=== PATIENT | female | born 1990 | race Caucasian/White ===

== ENCOUNTER → 2021-04-14 | Outpatient (CLI) | payer OTHER ==
[2021-04-14 12:11] LABS: ESTRADIOL 27.1 PG/ML; PROGESTERONE 23.85 NG/ML
== END ==
LOC: M LAB 10:39
PROVIDERS: ATTEND Obstetrics & Gynecology Reproductive Endocrinology
DX: Z31.41 Encounter for fertility testing (principal)

== ENCOUNTER → 2021-04-21 | Outpatient (CLI) | payer OTHER ==
[2021-04-21 09:36] LABS: PROGESTERONE 14.25 NG/ML
== END ==
LOC: M LAB 08:31
PROVIDERS: ATTEND Obstetrics & Gynecology Reproductive Endocrinology
DX: Z32.00 Encounter for pregnancy test, result unknown (principal)

== ENCOUNTER → 2021-04-23 | Outpatient (CLI) | payer OTHER ==
[2021-04-23 08:16] LABS: THYROID STIMULATING HORMONE 2.18 uIU/ML (0.358-3.740)
[2021-04-23 08:18] LABS: ESTRADIOL 97.7 PG/ML; PROGESTERONE 16.23 NG/ML
== END ==
LOC: M LAB 07:17
PROVIDERS: ATTEND Obstetrics & Gynecology Reproductive Endocrinology
DX: Z32.01 Encounter for pregnancy test, result positive (principal)

== ENCOUNTER → 2021-04-27 | Outpatient (CLI) | payer OTHER ==
[2021-04-27 10:20] LABS: PROGESTERONE 17.15 NG/ML
[2021-04-27 10:22] LABS: ESTRADIOL 152.8 PG/ML
== END ==
LOC: M LAB 08:56
PROVIDERS: ATTEND Obstetrics & Gynecology Reproductive Endocrinology
DX: O09.00 Supervision of pregnancy with history of infertility, unspecified trimester (principal)

== ENCOUNTER → 2021-06-26 | Outpatient (CLI) | payer OTHER ==
[2021-06-26 18:05] LABS: BASO % 0.3 % (0.0-1.0); EOS # 0.1 10^3/uL (0.0-0.5); EOS % 0.6 % (0.0-3.0); HEMATOCRIT 36.2 % (36.0-47.0); HEMOGLOBIN 11.4 g/dl (12.0-15.5); LYMPH # 2.7 10^3/uL (1.5-5.0); LYMPH % 26.4 % (24.0-44.0); MEAN CORPUSCULAR HEMOGLOBIN 27.3 pg (27.0-33.0); MEAN CORPUSCULAR HGB CONC 31.5 g/dl (32.0-36.5); MEAN CORPUSCULAR VOLUME 86.6 fl (80.0-96.0); MONO # 0.6 10^3/uL (0.0-0.8); MONO % 5.3 % (2.0-8.0); NEUTROPHILS # 6.9 10^3/uL (1.5-8.5); NEUTROPHILS % 67.2 % (36.0-66.0); PLATELET COUNT, AUTOMATED 371 10^3/uL (150-450); RED BLOOD COUNT 4.18 10^6/uL (4.00-5.40); WHITE BLOOD COUNT 10.3 10^3/uL (4.0-10.0)
[2021-06-26 18:44] LABS: FREE T4 1.02 NG/DL (0.76-1.46); THYROID STIMULATING HORMONE 0.538 uIU/ML (0.358-3.740)
[2021-06-26 19:26] LABS: HIV 1&2 SCREEN CENTAUR NEGATIVE (NEGATIVE)
[2021-06-26 21:04] LABS: GC DNA AMPLIFICATION NEGATIVE (NEGATIVE)
== END ==
LOC: M PLALAB 15:29
PROVIDERS: ATTEND Advanced Practice Midwife
DX: Z34.91 Encounter for supervision of normal pregnancy, unspecified, first trimester (principal)

== ENCOUNTER → 2021-08-10 | Outpatient (CLI) | payer OTHER ==
--- NOTE | 2021-08-10 14:06 | REP ---
INDICATION: ANATOMY. COMPARISON: None. TECHNIQUE: Transabdominal scanning FINDINGS: Multiple ultrasonographic images of the gravid uterus shows a single living intrauterine gestation in the cephalic presentation. Doppler interrogation of the heart shows a heart rate of 140 beats per minute. The placenta is anterior and not low-lying. The cervix measures 5.4 cm in length and is closed. The subjective amniotic fluid volume is within normal limits. BPD: 4.4 cm 19 weeks 2 days HC: 16.2 cm 19 weeks 0 days AC: 15.3 cm 20 weeks 4 days FL: 3.3 cm 20 weeks 2 days The estimated weight is 342 g which is at the 76 percentile. anatomical structures seen to be unremarkable are as follows thalami, cavum septum pellucidum, cerebellum, cisterna magna, cerebral ventricles, kidneys, urinary bladder, three-vessel umbilical cord, cord insertion, stomach, upper lip, and upper lower extremities Structures seen suboptimally are as follows: Four-chamber heart, ventricular outflow tracts, and spine IMPRESSION: Single living intrauterine gestation as described above with an estimated gestational age of 19 weeks 6 days via composite criteria and an estimated date of delivery of 12/29/2021 by today's exam. No anomalies were detected, however, a follow-up examination to optimally visualize those structures not well seen today as described above is recommended. <Electronically signed by Juan Barnett > 08/10/21 0043
== END ==
LOC: M WHC 11:28
PROVIDERS: ATTEND Advanced Practice Midwife
DX: O09.812 Supervision of pregnancy resulting from assisted reproductive technology, second trimester (principal); Z3A.19 19 weeks gestation of pregnancy

== ENCOUNTER → 2021-09-14 | Outpatient (CLI) | payer OTHER | LOC: M WHC 15:22 | PROVIDERS: ATTEND Advanced Practice Midwife | DX: Z34.92 Encounter for supervision of normal pregnancy, unspecified, second trimester (principal); Z3A.24 24 weeks gestation of pregnancy ==

== ENCOUNTER → 2021-09-22 | Outpatient (CLI) | payer OTHER ==
[2021-09-22 17:29] LABS: HEMATOCRIT 33.5 % (36.0-47.0); HEMOGLOBIN 10.7 g/dl (12.0-15.5); MEAN CORPUSCULAR HEMOGLOBIN 27.8 pg (27.0-33.0); MEAN CORPUSCULAR HGB CONC 31.9 g/dl (32.0-36.5); PLATELET COUNT, AUTOMATED 320 10^3/uL (150-450); RED BLOOD COUNT 3.85 10^6/uL (4.00-5.40); WHITE BLOOD COUNT 12.1 10^3/uL (4.0-10.0)
== END ==
LOC: M PLALAB 14:33
PROVIDERS: ATTEND Advanced Practice Midwife
DX: Z34.92 Encounter for supervision of normal pregnancy, unspecified, second trimester (principal)

== ENCOUNTER → 2021-10-09 | Outpatient (CLI) | payer OTHER | LOC: M LAB 07:22 | PROVIDERS: ATTEND Advanced Practice Midwife | DX: O99.810 Abnormal glucose complicating pregnancy (principal); Z3A.00 Weeks of gestation of pregnancy not specified ==

== ENCOUNTER → 2021-12-04 | Outpatient (REF) | payer OTHER | LOC: M SFHCWAGY 12:58 | PROVIDERS: ATTEND Obstetrics & Gynecology | DX: Z36.85 Encounter for antenatal screening for Streptococcus B (principal); Z3A.36 36 weeks gestation of pregnancy ==

== ENCOUNTER 2022-01-07 17:24 | Inpatient (IN) | payer OTHER ==
[~2022-01-07] VITALS: Ht 175.3 cm; Wt 128.1 kg
[2022-01-07 17:59] VITALS: BP 122/63
[2022-01-07] MEDS ORDERED: PENICILLIN G POTASSIUM IV 5 MU in D5W MINI-BAG PLUS 100 ML IV STA (18:21)
[2022-01-07] MEDS ORDERED: TRANEXAMIC ACID INJection 1,000 MG in NS 100 ML IV PRN (18:25)
[2022-01-07] MEDS ORDERED: METHYLERGONOVINE MALEATE 0.2 MG/ML VIAL (J2210) IM PRN (18:25)
[2022-01-07] MEDS ORDERED: CARBOPROST TROMETHAMINE 250 MCG/ML AMP IM PRN (18:25)
[2022-01-07] MEDS ORDERED: miSOPROStol 50MCG 1/2 TABLET PO ONE (18:25)
[2022-01-07] MEDS ORDERED: LACTATED RINGER'S 1000 ML IV PRN (18:25)
[2022-01-07] MEDS ORDERED: PRENTAB9 PO (18:37)
[2022-01-07] MEDS ORDERED: HOME MED LIST COMPLETE! XX SCH (18:40)
[2022-01-07 19:23] LABS: HEMATOCRIT 33.8 % (36.0-47.0); HEMOGLOBIN 10.8 g/dl (12.0-15.5); MEAN CORPUSCULAR HEMOGLOBIN 27.4 pg (27.0-33.0); MEAN CORPUSCULAR VOLUME 85.8 fl (80.0-96.0); PLATELET COUNT, AUTOMATED 248 10^3/uL (150-450); RED BLOOD COUNT 3.94 10^6/uL (4.00-5.40); WHITE BLOOD COUNT 11.3 10^3/uL (4.0-10.0)
[2022-01-07 20:11] VITALS: BP 132/73
[2022-01-07 21:17] VITALS: BP 126/61
[2022-01-07 22:35] VITALS: BP 133/67
[2022-01-07 23:18] VITALS: BP 132/74
[2022-01-07] MEDS ORDERED: miSOPROStol 25MCG 1/4 TABLET PO ONE (23:35)
[2022-01-08] VITALS (36 sets, daily range): BP systolic 101–168; BP diastolic 53–88
[2022-01-08] MEDS ORDERED: OXYTOCIN DRIP 30 UNITS in IV 1 EA IV SCH ×2 (07:00→14:05)
[2022-01-08] MEDS ORDERED: FENTANYL 2MCG/ML ROPIVACAINE 0.2% IN 0.9% NACL 100ML IVBAG As Ordered ONE (08:35)
[2022-01-08] MEDS ORDERED: EPIDURAL/PCA KEYS XX PRN (11:00)
[2022-01-08] MEDS ORDERED: ePHEDrine SULFATE 25 MG/5 ML(5MG/ML) SYRINGE IV PRN (11:00)
[2022-01-08] MEDS ORDERED: REFRIGERATOR IV KEYS XX PRN (11:00)
[2022-01-08] MEDS ORDERED: NALOXONE INJ 0.4MG/1ML VIAL (J2310 PER 1MG) IV PRN (11:00)
[2022-01-08] MEDS ORDERED: ONDANSETRON 4MG/2ML VIAL IV PRN (11:00)
[2022-01-08] MEDS ORDERED: LACTATED RINGER'S 1000 ML IV PRN (11:00)
[2022-01-08] MEDS ORDERED: diphenhydrAMINE 50MG/ML VIAL (J1200) IV PRN (11:00)
[2022-01-08] MEDS ORDERED: FENTANYL/ROPIVACAINE/NACL BAG 100 ML EPIDURAL SCH (11:00)
[2022-01-08] MEDS ORDERED: EPIDURAL COMMENT XX SCH (11:00)
[2022-01-08] MEDS ORDERED: PENICILLIN G POTASSIUM IV 2.5 MU in IV 1 EA IV SCH (11:30)
[2022-01-08] MEDS: LR 1,000 ML IV SCH ×2 (12:06→12:54)
[2022-01-08] MEDS ORDERED: IBUPROFEN 600MG TAB PO PRN (14:05)
[2022-01-08] MEDS ORDERED: ACETAMINOPHEN TAB 650MG DOSE (2X325MG) PO PRN (14:05)
[2022-01-08] MEDS ORDERED: MEASLES,MUMPS,RUBELLA VACCINE INJ (MMR-II) (90707) SC SCH (14:05)
[2022-01-08] MEDS ORDERED: RHOGAM 300 MCG (1500 IU) INJ (J2790) IM SCH (14:05)
[2022-01-08] MEDS ORDERED: METHYLERGONOVINE MALEATE 0.2 MG TAB PO PRN (14:05)
[2022-01-08 14:16] LABS: CORD GAS ABE A -3.1; CORD GAS ABE V -2.4; CORD GAS HCO3 A 25.2 MEQ/L; CORD GAS HCO3 V 22.3 MEQ/L; CORD GAS O2 SAT V 72.6 %; CORD GAS PCO2 A 58.6 mmHg; CORD GAS PCO2 V 38.3 mmHg; CORD GAS PH A 7.252 UNITS; CORD GAS PH V 7.382 UNITS; CORD GAS PO2 A 27.5 mmHg; CORD GAS PO2 V 29.6 mmHg; CORD GAS SBC A 20.9 MEQ/L; CORD GAS SBC V 21.8 MEQ/L; CORD GAS TCO2 V 23.4 MEQ/L
[2022-01-08] MEDS: PRENATAL VITAMINS CHEWABLE TABLET PO SCH (16:27)
[2022-01-08] MEDS: DOCUSATE SODIUM 100MG CAPSULE PO PRN (19:23)
[2022-01-09] MEDS: IBUPROFEN 800 MG TAB PO PRN ×3 (00:39→20:47)
[2022-01-09 06:00] VITALS: BP 144/72
[2022-01-09] MEDS: PRENATAL VITAMINS CHEWABLE TABLET PO SCH (07:52)
[2022-01-09] MEDS: ACETAMINOPHEN 500 MG TAB PO PRN (07:53)
[2022-01-09 18:00] VITALS: BP 162/74
[2022-01-09] MEDS: DOCUSATE SODIUM 100MG CAPSULE PO PRN (20:43)
[2022-01-10 06:00] VITALS: BP 144/84
[2022-01-10] MEDS: ACETAMINOPHEN 500 MG TAB PO PRN (09:05)
[2022-01-10] MEDS: PRENATAL VITAMINS CHEWABLE TABLET PO SCH (09:05)
== END 2022-01-10 12:00 | disposition home or self-care (01) | DRG 560 ==
LOC: M LDI 17:24 → M OBS 01-08 16:45
PROVIDERS: ADMIT Obstetrics & Gynecology; ATTEND Obstetrics & Gynecology
PROC: 3E0P7VZ Introduction of Hormone into Female Reproductive, Via Natural or Artificial Opening (ICD-10-PCS; 2022-01-07)
PROC: 10E0XZZ Delivery of Products of Conception, External Approach (ICD-10-PCS; principal; 2022-01-08)
PROC: 0KQM0ZZ Repair Perineum Muscle, Open Approach (ICD-10-PCS; 2022-01-08)
PROC: 10907ZC Drainage of Amniotic Fluid, Therapeutic from Products of Conception, Via Natural or Artificial Opening (ICD-10-PCS; 2022-01-08)
DX: O48.0 Post-term pregnancy (principal); O99.824 Streptococcus B carrier state complicating childbirth; Z37.0 Single live birth; Z3A.41 41 weeks gestation of pregnancy; O69.82X0 Labor and delivery complicated by other cord entanglement, without compression, not applicable or unspecified; O70.1 Second degree perineal laceration during delivery; O77.0 Labor and delivery complicated by meconium in amniotic fluid

== ENCOUNTER 2022-12-27 11:35 | Emergency (ER) | payer OTHER ==
[~2022-12-27] VITALS: Ht 177.8 cm; Wt 118.2 kg
[~2022-12-27 11:35] MED LIST: PRENTAB9 PO
[2022-12-27] MEDS ORDERED: ALBUTEROL 90 MCG/ACT 8GM HFA INHALER INH ONE (13:45)
[2022-12-27 14:46] LABS: BASO # 0.1 10^3/uL (0.0-0.2); BASO % 0.4 % (0.0-1.0); EOS # 0.1 10^3/uL (0.0-0.5); EOS % 0.3 % (0.0-3.0); HEMATOCRIT 35.4 % (36.0-47.0); HEMOGLOBIN 11.1 g/dl (12.0-15.5); LYMPH % 14.8 % (24.0-44.0); MEAN CORPUSCULAR HGB CONC 31.4 g/dl (32.0-36.5); MEAN CORPUSCULAR VOLUME 86.1 fl (80.0-96.0); MONO # 0.6 10^3/uL (0.0-0.8); MONO % 3.2 % (2.0-8.0); NEUTROPHILS # 16.2 10^3/uL (1.5-8.5); NEUTROPHILS % 80.9 % (36.0-66.0); PLATELET COUNT, AUTOMATED 379 10^3/uL (150-450); RED BLOOD COUNT 4.11 10^6/uL (4.00-5.40)
[2022-12-27 15:19] LABS: ALKALINE PHOSPHATASE 76 U/L (46-116); ALT/SGPT 15 U/L (7.0-40); AST/SGOT 11 U/L (<34); BLOOD UREA NITROGEN 11 MG/DL (9-23); CALCIUM LEVEL 9.1 MG/DL (8.5-10.1); CARBON DIOXIDE LEVEL 25 MMOL/L (20-31); CHLORIDE LEVEL 106 MMOL/L (98-107); CREATININE FOR GFR 0.55 MG/DL (0.55-1.30); GLOMERULAR FILTRATION RATE > 60.0 (>60); GLUCOSE, FASTING 86 MG/DL (60-100); SODIUM LEVEL 137 MMOL/L (136-145)
[2022-12-27 15:20] LABS: BILIRUBIN,TOTAL 0.3 MG/DL (0.3-1.2)
[2022-12-27 15:21] LABS: RSV AMPLIFICATION NEGATIVE (NEGATIVE)
[2022-12-27] MEDS ORDERED: BENZ200C70 PO (17:07)
[2022-12-27] MEDS ORDERED: VENTAER INH (17:07)
[2022-12-27 17:42] VITALS: BP 152/91
== END 2022-12-27 17:49 | disposition home or self-care (01) ==
LOC: M ED 11:35
DX: J98.01 Acute bronchospasm (principal); D72.829 Elevated white blood cell count, unspecified; Z79.52 Long term (current) use of systemic steroids; Z79.899 Other long term (current) drug therapy

== ENCOUNTER → 2023-02-03 | Outpatient (REF) | payer OTHER ==
[~2023-02-03] MED LIST changes: +BENZ200C70 PO; +VENTAER INH; +physical therapy
== END ==
LOC: M SFHCWAGY 10:30
PROVIDERS: ATTEND Nurse Practitioner Family
DX: Z12.4 Encounter for screening for malignant neoplasm of cervix (principal)

== ENCOUNTER → 2023-06-10 | Outpatient (REF) | payer OTHER ==
[2023-06-10 12:57] LABS: BASO # 0.1 10^3/uL (0.0-0.2); BASO % 0.7 % (0.0-1.0); EOS # 0.1 10^3/uL (0.0-0.5); EOS % 1.4 % (0.0-3.0); HEMOGLOBIN 12.3 g/dl (12.0-15.5); LYMPH % 35.4 % (24.0-44.0); MEAN CORPUSCULAR HEMOGLOBIN 25.7 pg (27.0-33.0); MEAN CORPUSCULAR HGB CONC 30.8 g/dl (32.0-36.5); MEAN CORPUSCULAR VOLUME 83.5 fl (80.0-96.0); MONO # 0.5 10^3/uL (0.0-0.8); MONO % 5.6 % (2.0-8.0); NEUTROPHILS # 4.7 10^3/uL (1.5-8.5); NEUTROPHILS % 56.7 % (36.0-66.0); PLATELET COUNT, AUTOMATED 388 10^3/uL (150-450); RED BLOOD COUNT 4.79 10^6/uL (4.00-5.40); WHITE BLOOD COUNT 8.4 10^3/uL (4.0-10.0)
[2023-06-10 13:03] LABS: ALBUMIN 3.9 G/DL (3.2-5.2); ALKALINE PHOSPHATASE 71 U/L (46-116); ALT/SGPT 23 U/L (7.0-40); AST/SGOT < 8 U/L (<34); BILIRUBIN,TOTAL 0.5 MG/DL (0.3-1.2); BLOOD UREA NITROGEN 9 MG/DL (9-23); CALCIUM LEVEL 9.6 MG/DL (8.5-10.1); CARBON DIOXIDE LEVEL 31 MMOL/L (20-31); CHLORIDE LEVEL 102 MMOL/L (98-107); CHOLESTEROL LEVEL 164 MG/DL (<200); CHOLESTEROL RISK RATIO 4.65 (<5); CREATININE FOR GFR 0.69 MG/DL (0.55-1.30); GLOMERULAR FILTRATION RATE > 60.0 (>60); GLUCOSE, FASTING 88 MG/DL (60-100); HDL CHOLESTEROL 35.2 MG/DL (>40); NON-HDL-C 128.8 MG/DL; POTASSIUM SERUM 4.6 MMOL/L (3.5-5.1); SODIUM LEVEL 139 MMOL/L (136-145); TOTAL PROTEIN 7.3 G/DL (5.7-8.2); TRIGLYCERIDES LEVEL 154 MG/DL (<150)
[2023-06-10 13:05] LABS: THYROID STIMULATING HORMONE 2.231 uIU/ML (0.55-4.78)
[2023-06-10 13:20] LABS: HEMOGLOBIN A1c 5.9 % (4.0-6.0)
== END ==
LOC: M LAB REF 12:23
PROVIDERS: ATTEND Nurse Practitioner Family
DX: Z13.228 Encounter for screening for other metabolic disorders (principal)

== ENCOUNTER 2024-10-11 19:23 | Emergency (ER) | payer OTHER ==
[~2024-10-11] VITALS: Ht 177.8 cm; Wt 120.8 kg
[2024-10-11] MEDS ORDERED: NOXI1TAB PO (22:29)
[2024-10-11] MEDS ORDERED: BIOT1CAP2 PO (22:29)
[2024-10-11] MEDS: MECLIZINE 25 MG TABLET PO ONE (22:46)
[2024-10-11 23:31] VITALS: BP 123/60
[2024-10-11 23:38] VITALS: TEMP 97.3; O2SAT 98
[2024-10-11] MEDS ORDERED: MECL-209 PO (23:54)
[2024-10-11] MEDS ORDERED: [UNRECOGNIZED DRUG - OTHER] (23:54)
== END 2024-10-12 00:19 | disposition home or self-care (01) ==
LOC: M ED 19:23
DX: S83.91XA Sprain of unspecified site of right knee, initial encounter (principal); H81.4 Vertigo of central origin; X50.0XXA Overexertion from strenuous movement or load, initial encounter; Y92.9 Unspecified place or not applicable; Y93.89 Activity, other specified; Y99.9 Unspecified external cause status; Z79.899 Other long term (current) drug therapy

== ENCOUNTER → 2024-10-17 | Outpatient (REF) | payer OTHER ==
[~2024-10-17] MED LIST changes: +BIOT1CAP2 PO; +MECL-209 PO; +NOXI1TAB PO; +[UNRECOGNIZED DRUG - OTHER]
[2024-10-17 14:24] LABS: BASO # 0.1 10^3/uL (0.0-0.2); BASO % 0.8 % (0.0-1.0); EOS # 0.1 10^3/uL (0.0-0.5); EOS % 1.3 % (0.0-3.0); HEMATOCRIT 41.5 % (36.0-47.0); HEMOGLOBIN 12.9 g/dl (12.0-15.5); LYMPH # 2.8 10^3/uL (1.5-5.0); LYMPH % 34.6 % (24.0-44.0); MEAN CORPUSCULAR HEMOGLOBIN 26.7 pg (27.0-33.0); MEAN CORPUSCULAR HGB CONC 31.1 g/dl (32.0-36.5); MEAN CORPUSCULAR VOLUME 85.9 fl (80.0-96.0); MONO # 0.4 10^3/uL (0.0-0.8); MONO % 4.4 % (2.0-8.0); NEUTROPHILS # 4.7 10^3/uL (1.5-8.5); NEUTROPHILS % 58.6 % (36.0-66.0); PLATELET COUNT, AUTOMATED 399 10^3/uL (150-450); RED BLOOD COUNT 4.83 10^6/uL (4.00-5.40)
[2024-10-17 15:25] LABS: BLOOD UREA NITROGEN 14 MG/DL (9-23); CALCIUM LEVEL 9.2 MG/DL (8.5-10.1); CARBON DIOXIDE LEVEL 28 MMOL/L (20-31); CHLORIDE LEVEL 109 MMOL/L (98-107); CREATININE FOR GFR 0.71 MG/DL (0.55-1.30); FERRITIN 10.8 NG/ML (7.3-270.7); FREE T4 1.09 NG/DL (0.89-1.76); GLOMERULAR FILTRATION RATE > 60.0 (>60); GLUCOSE, FASTING 103 MG/DL (60-100); IRON (FE) 60 UG/DL (50-170); PERCENT SATURATION 15.1 % (13.2-45.0); POTASSIUM SERUM 4.8 MMOL/L (3.5-5.1); SODIUM LEVEL 141 MMOL/L (136-145); THYROID STIMULATING HORMONE 1.119 uIU/ML (0.55-4.78); TOTAL IRON BINDING CAPACITY 397 UG/DL (250-425)
== END ==
LOC: M LAB REF 13:17
PROVIDERS: ATTEND Physician Assistant
DX: D64.9 Anemia, unspecified (principal); R42 Dizziness and giddiness

== ENCOUNTER → 2024-11-07 | Outpatient (CLI) | payer OTHER | LOC: M RAD 07:35 | PROVIDERS: ATTEND Physician Assistant | DX: R42 Dizziness and giddiness (principal) ==

== ENCOUNTER 2025-05-21 06:21 | Day surgery (SDC) | payer OTHER ==
[~2025-05-21] VITALS: Ht 175.3 cm; Wt 115.7 kg
[2025-05-21] MEDS ORDERED: LR 1,000 ML IV SCH (06:35)
[2025-05-21] MEDS ORDERED: FAMOTIDINE 20 MG/2 ML VIAL IVP ONE (06:45)
[2025-05-21] MEDS ORDERED: SCOPOLAMINE 1MG TRANSDERMAL PATCH TOP ONE (06:45)
[2025-05-21] MEDS ORDERED: MIDAZOLAM INJ 2 MG/2 ML VIAL As Ordered ONE (07:05)
[2025-05-21] MEDS ORDERED: ROCURONIUM BROMIDE 50MG/5ML VIAL As Ordered ONE (07:07)
[2025-05-21] MEDS: SILVER NITRATE APPLICATOR (1 = QTY 10) As Ordered ONE (07:07)
[2025-05-21] MEDS ORDERED: dexAMETHasone 4 MG/ML 1 ML VIAL As Ordered ONE (07:09)
[2025-05-21] MEDS ORDERED: LIDOCAINE 2% 100 MG/5 ML SDV (FOR ANES.) As Ordered ONE (07:09)
[2025-05-21] MEDS ORDERED: ONDANSETRON 4MG 2ML VIAL As Ordered ONE (07:11)
[2025-05-21] MEDS ORDERED: dexmedeTOMIDine (4 MCG/ML) 200 MCG/50 ML BTL As Ordered ONE (07:13)
[2025-05-21] MEDS ORDERED: ACETAMINOPHEN 1000MG/100ML IV BAG As Ordered ONE (07:13)
[2025-05-21] MEDS ORDERED: SUGAMMADEX SODIUM 500 MG/5 ML VIAL As Ordered ONE (07:51)
[2025-05-21] MEDS: OXYMETAZOLINE 0.05% NASAL SPRAY As Ordered ONE (08:01)
[2025-05-21] MEDS ORDERED: LABETALOL 100 MG/20 ML VIAL As Ordered ONE (08:06)
[2025-05-21] MEDS ORDERED: HYDROMORPHONE HCL 0.5 MG/0.5 ML SYRINGE IV PRN (08:15)
[2025-05-21] MEDS: ONDANSETRON 4MG 2ML VIAL IV PRN (08:42)
[2025-05-21 09:40] VITALS: BP 155/89; TEMP 96.6; O2SAT 97
== END 2025-05-21 09:45 | disposition home or self-care (01) ==
LOC: M SDC 06:21
PROVIDERS: ATTEND Otolaryngology
DX: J35.01 Chronic tonsillitis (principal); R04.0 Epistaxis
CPT/HCPCS: 30901; 42826; 81025; 88302; J0131; J1100; J1920; J2250; J2405; J3010

== ENCOUNTER → 2025-07-01 | Outpatient (REF) | payer OTHER ==
[2025-07-03 15:57] LABS: HPV APTIMA Not Detected (Not Detected)
== END ==
LOC: M SFHCWAGY 13:11
PROVIDERS: ATTEND Nurse Practitioner Family
DX: Z12.4 Encounter for screening for malignant neoplasm of cervix (principal); Z77.9 Other contact with and (suspected) exposures hazardous to health

== ENCOUNTER → 2025-08-06 | Outpatient (REF) | payer OTHER ==
[2025-08-06 14:59] LABS: BASO # 0.1 10^3/uL (0.0-0.2); BASO % 0.8 % (0.0-1.0); EOS # 0.1 10^3/uL (0.0-0.5); EOS % 1.7 % (0.0-3.0); LYMPH # 2.2 10^3/uL (1.5-5.0); LYMPH % 30.3 % (24.0-44.0); MONO # 0.5 10^3/uL (0.0-0.8); MONO % 7.3 % (2.0-8.0); NEUTROPHILS # 4.4 10^3/uL (1.5-8.5); NEUTROPHILS % 59.8 % (36.0-66.0); PLATELET COUNT, AUTOMATED 344 10^3/uL (150-450)
[2025-08-06 15:10] LABS: ALT/SGPT 14 U/L (7.0-40); AST/SGOT 11 U/L (<34); CALCIUM LEVEL 9.3 MG/DL (8.5-10.1); CARBON DIOXIDE LEVEL 27 MMOL/L (20-31); CHLORIDE LEVEL 107 MMOL/L (98-107); CHOLESTEROL LEVEL 139 MG/DL (<200); CHOLESTEROL RISK RATIO 3.81 (<5); CREATININE FOR GFR 0.65 MG/DL (0.55-1.30); GLOMERULAR FILTRATION RATE > 90.0 (>60); IRON (FE) 23 UG/DL (50-170); LDL CHOLESTEROL 76.6 MG/DL (<100); MAGNESIUM LEVEL 1.7 MG/DL (1.8-2.4); NON-HDL-C 102.6 MG/DL; PERCENT SATURATION 6.1 % (13.2-45.0); POTASSIUM SERUM 4.4 MMOL/L (3.5-5.1); SODIUM LEVEL 143 MMOL/L (136-145); TRIGLYCERIDES LEVEL 130 MG/DL (<150)
[2025-08-06 15:12] LABS: TOTAL 25(OH) VITAMIN D 22.4 NG/ML (20.0-100.0)
[2025-08-06 15:14] LABS: VITAMIN B12 LEVEL 453 PG/ML (211-911)
[2025-08-06 15:15] LABS: FREE T4 1.16 NG/DL (0.89-1.76)
[2025-08-06 15:17] LABS: ESTIMATED AVERAGE GLUCOSE 114.0 MG/DL (60-110)
== END ==
LOC: M LAB REF 13:59
PROVIDERS: ATTEND Physician Assistant
DX: R73.03 Prediabetes (principal); E55.9 Vitamin D deficiency, unspecified; D64.9 Anemia, unspecified; G44.221 Chronic tension-type headache, intractable; E78.5 Hyperlipidemia, unspecified; R42 Dizziness and giddiness